=== PATIENT | male | born 1935 | race Caucasian/White ===

== ENCOUNTER → 2016-08-06 | Outpatient (REF) ==
[~2016-08-06] MED LIST: ASPIRIN E.C. 8181 MG PO; FOLGARD RX 1 MG1 TAB PO; GLIPIZIDE5 M1 PO; LANTUS100 U/ML; LISINOPRIL40 MG PO; METFORMIN1000 MG PO; NIACIN500 M3 PO; NITRO TRANS0.4 MG/HR TD; OMEGA 31000 MG PO; PRILOSEC40 MG PO; PROPRANOLOL10 MG PO; SIMVASTATIN80 MG PO; VITAMIN E28000 IU TP
== END ==
LOC: ZLAB.WCH 10:13
DX: Z01.89 Encounter for other specified special examinations (principal)

== ENCOUNTER → 2017-02-16 | Outpatient (REF) | LOC: ZLAB.WCH 18:08 | DX: Z01.89 Encounter for other specified special examinations (principal) ==

== ENCOUNTER → 2017-08-16 | Outpatient (REF) | LOC: ZLAB.WCH 16:08 | DX: Z01.89 Encounter for other specified special examinations (principal) ==

== ENCOUNTER → 2018-02-16 | Outpatient (REF) | LOC: ZLAB.WCH 15:58 | DX: Z01.89 Encounter for other specified special examinations (principal) ==